=== PATIENT | male | born 1990 ===

== ENCOUNTER 2022-03-25 12:35 | Outpatient (REF) | payer BC, SELFPAY ==
--- NOTE | 2022-03-30 13:15 | MHC.AU.AEV ---
Adult Audiological Evaluation Date of Visit: 03/25/22 Reason for Appointment: Initial testing prior to full central auditory processing evaluation. Felix was reportedly diagnosed with CAP in [address] [facility]. 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 Throughout schooling, Felix reportedly had extra test time and note takers as well as allowed to preview upcoming material for classes; however, he was not formally diagnosed with CAP until 2019. Has hearing been tested previously?: Yes Previous Hearing Test Results: [facility] on 10/16/2018 - Normal peripheral hearing with normal middle ear function, bilaterally. Central auditory processing disorder in phonemic decoding and tolerance fading memory Hearing Handicap Inventory Does a hearing problem cause you to feel embarrassed when meeting new people?: Sometimes Does a hearing problem cause you to feel frustrated when talking to members of your family?: Sometimes Do you have difficulty when someone speaks in a whisper?: Yes Do you feel handicapped by a hearing problem?: Sometimes Does a hearing problem cause you difficulty when visiting friends, relatives, or neighbors?: Sometimes Does a hearing problem cause you to attend gnosticism service services less often than you would like?: No Does a hearing problem cause you to have arguments with family members?: No Does a hearing problem cause you difficulty when listening to TV or radio?: Yes Do you feel that any difficult with your hearing limits or hampers your personal or social life?: Sometimes Does a hearing problem cause you difficulty when in a restaurants with relatives or friends?: Sometimes HHIE SCORE: 20 Based on HHIE score, patient has: Mild to moderate perceived hearing handicap Medical History: Medical History: Anxiety/Depression Medication List: Celexa, Testosterone Otoscopy: Right Ear: Unremarkable Left Ear: Unremarkable Tympanometry: Tympanometry performed due to: To assess integrity of the middle ear system Right Ear: Normal Middle Ear System (Type A) Left Ear: Normal Middle Ear System (Type A) Acoustic Reflexes: Ipsilateral Probe Right: 500 Hz: Present 1000 Hz: Present 2000 Hz: Present 4000 Hz: Present Probe Left: 500 Hz: Present 1000 Hz: Present 2000 Hz: Present 4000 Hz: Absent Contralateral Probe Right: 500 Hz: Present 1000 Hz: Present 2000 Hz: Present 4000 Hz: Absent Probe Left: 500 Hz: Present 1000 Hz: Present 2000 Hz: Absent 4000 Hz: Absent Otoacoustic Emissions Frequency Range Used: 1.5-12 kHz Right Ear: Results: Present 1.5-6 and 11-12 kHz; Reduced 7-10 kHz Analysis: Present emissions suggest normal cochlear function; Reduced/Absent emissions suggest cochlear dysfunction Left Ear: Results: Present 1.5-6 and 11-12 kHz; Reduced 7-10 kHz Analysis: Present emissions suggest normal cochlear function; Reduced/Absent emissions suggest cochlear dysfunction Hearing Evaluation: Transducer(s) Used: Insert Earphones Method: Conventional Stimuli Used: Pure Tones Right Ear: Description of Hearing: Normal hearing 250-8000 Hz and excellent speech discrimination in quiet Left Ear: Description of Hearing: Normal hearing 250-8000 Hz and excellent speech discrimination in quiet Most Comfortable Level (MCL): 55 dB HL in each ear to speech Uncomfortable Loudness Level (UCL): 95 dB HL in each ear to speech Right Ear: 100, 105, 110, 110 dB HL to tones at 500, 1000, 2000, 4000 Hz, respectively Left Ear: 100, 105, 105, 110 dB HL to tones at 500, 1000, 2000, 4000 Hz, respectively QuickSIN: 1 dB SNR loss Interpretation of Results: Compared to the most recent evaluation: Hearing is stable. Normal peripheral hearing and middle ear function, bilaterally. QuickSIN results show normal/near normal degree of SNR loss. Performance on the Auditory Continuous Performance Test indicate normal auditory vigilance with no auditory impulsivity or inattention. Recommendations: Return for Speech, Language, and Cognition evaluation as well as full auditory processing evaluation. Further recommendations will be made at that time. Diagnosis: Primary Diagnosis: H93.293 Abnormal Auditory Perception Signature: Provider: David Gil, [facility]
== END 2022-03-25 12:36 | disposition home or self-care (01) ==
LOC: HO.SH 12:35
PROVIDERS: Visit Provider Family Medicine
DX: H93.293 Other abnormal auditory perceptions, bilateral (principal)
CPT/HCPCS: 92550; 92557; 92587; 92700

== ENCOUNTER 2022-04-22 15:02 | Outpatient (REF) | payer BC, SELFPAY ==
--- NOTE | 2022-04-26 11:26 | MHC.AU.CAP ---
(Central) Auditory Processing Evaluation Date of Visit: 04/22/22 Reason for Evaluation: Felix was referred for a central auditory processing evaluation to reevaluate his needs and appropriate accommodations for academic tasks. He was diagnosed with CAP in October [address] [facility]. 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 Although not formally diagnosed with CAP until 2019, Felix noted that he had learning difficulties throughout his school years. However, he was a successful student with classroom and academic accommodations. Felix reported that now, at work, hearing and communicating in big group meetings is difficult at times. Per Felix, it can be difficult for him to concentrate and focus especially in the presence of background noise or competing sound sources. Previous Evaluations: Central auditory processing evaluation at [facility] on 10/16/2018 - Normal peripheral hearing and normal middle ear function, bilaterally, with central auditory processing disorder in phonemic decoding and tolerance fading memory Speech, Language, and Cognition evaluation at [facility] on 04/05/2022 - Specific area of weakness/disability in the area of short term auditory memory Previous Audiological Evaluation: Diagnostic hearing evaluation at [facility] on 03/25/2022 - Normal peripheral hearing and normal middle ear function, bilaterally / History: History: Unknown History /Delivery History: Unknown /Delivery History /Delivery History (Other): Adopted from [place] at age 3 [place] Hearing Screening: Results Are Unknown Patient History: Health History: History of concussion, anxiety/depression Medications: Celexa, Testosterone Family History of Childhood-Onset Hearing Loss: Unknown Academic History: School: Felix attended private schools including [employer] and [employer] for his primary education. He did not have an individualized education plan in place; however, he reportedly had learning difficulties, specifically in math and reading. Subsequently, he did have accommodations in school including extra time on exams, note takers, and previews of upcoming material. He attended [employer] for his undergraduate degree and [employer] for his master's degree. 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 Auditory Continuous Performance Test (ACPT): is an attention screening that evaluates the ability to listen over a prolonged period of time. Normative data for Felix?s age at the time of testing indicates possible attention difficulties if 16 or more errors are made. This test was performed on 03/25/2022. Results show 0 inattention errors and 0 impulsivity errors for a total of 0 errors on this test, which is within normal limits and suggests Felix is capable of sustained auditory attention. EVALUATION: Frequency Patterns Test is a test of temporal processing skills, specifically frequency discrimination, linguistic labeling, and temporal pattern perception. Three tones are presented to the patient, which change in pitch between low or high. The patient has to verbally label the pitch patterns. Felix?s score was 90% correct when the pattern was labeled verbally. Normative values for this age group are 80% correct or better. The result of the Frequency Patterns test is within normal limits, suggesting normal temporal processing ability. Dichotic Digits Test is a test of binaural integration. During this test, a different pair of numbers is presented simultaneously to each ear, and the patient must repeat all four numbers presented. Felix?s scores were 97.5% correct in the right ear and 95% correct in the left ear. Normative values for this age group are 90% correct or better. The results of the Dichotic Digits test are within normal limits, and suggest normal binaural integration ability. Competing Sentences Test is a test of binaural separation. Different sentences are presented to each ear simultaneously, with the target sentence 15 dBHL softer than the competing sentence. The patient is asked to repeat only what was heard in the target ear. Felix?s scores were 97.5% correct in the right ear and 97.5% correct in the left ear. Normative values for this age group are 90% correct or better. The results of the Competing Sentences test are within normal limits, and suggest normal binaural separation ability. [id number] is a test of auditory closure. The patient is asked to repeat single-syllable words in the presence of babble/noise. Felix?s scores were 56% correct in the right ear and 72% correct in the left ear. Normative values for this age group are 70% or better for each ear. The results of the [id number] test are within normal limits for the left ear and below normal limits for the right ear, suggesting an auditory closure deficit. Masking Level Difference is a test of binaural interaction. The listener repeats words in increasing levels of noise, first with the words out of phase, then with the words in phase, until they can no longer understand the words. The difference in threshold between words presented out of phase and in phase is calculated to measure the listener?s release from masking. Felix?s score revealed a 14 dB threshold release from masking. Normative values for this age group are 6 dB or greater. The result of the Masking Level Difference test is within normal limits, and suggests normal binaural interaction ability. INTERPRETATION OF RESULTS: Felix was able to sustain sufficient attention and effort throughout testing today. It is felt that today's results are a reliable representation of his auditory processing abilities. A (Central) Auditory Processing Disorder is typically diagnosed if the patient falls below normal limits on two or more subtests, or significantly poor performance (more than 3 standard deviations from the mean) on one subtest. -The results of today?s (Central) Auditory Processing evaluation suggest normal (Central) auditory processing ability and are not consistent with a (Central) Auditory Processing Disorder. However, a weakness was noted in auditory closure performance. This weakness combined with the weakness of short term auditory memory, as noted in the Speech, Language, and Cognition evaluation, may cause difficulty recalling briefly presented auditory information especially in the presence of background noise. 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 Auditory closure refers to the ability to fill in missing or distorted portions of the auditory signal and interpret the entire message. Difficulties with auditory closure may result in difficulty filling in the missing components when a portion of the auditory signal is inaudible. Often, the individual has difficulties with auditory discrimination and decoding. Listeners tend to have weak top-down processing, which may be influenced by attention or language-related problems. RECOMMENDATIONS: Individuals with auditory processing weaknesses may have to exert significant energy into listening, and therefore need better access to critical auditory information. Noise, reverberation, and distance can interfere with the ability to receive auditory information. The accommodations and communication strategies below can help provide better access to the auditory signal. Accommodations and Communication Strategies: -Reduce excessive background noise such as heating/cooling systems and fans and ensure that the individual is seated away from these sources of noise -Strategic seating in lectures or at meetings - near the target sound source (e.g., guest speaker, computer) and where the speaker's face is visible -If consistent difficulty is noted in a particular room, consider an acoustic evaluation to provide specific recommendations for environmental modifications -Ensure that you have gained the individual's attention prior to presenting important information -Rephrase or restate, rather than repeating exactly what has been said -Use Clear Speech -Speak clearly and deliberately -Slow down your rate of speech -Take short pauses in between thoughts -Do not yell -Use multimodal strategies including visual aids -Provide written notes or an outline of information that will be presented verbally before class so the individual can concentrate on the material presented and not on the writing of notes -Assign a peer children's zoo caretaker to supplement the individual's own notes -Pre-teach complicated information/topics; Have the individual read ahead prior to starting a new topic Given the normal results on today's assessment, no recommendations for direct services to address auditory processing skills are recommended; however, given FelixCarlosgaston specific areas of weakness, below are examples of compensatory strategies to improve listening comprehension, as well help to determine and retain the content/meaning of a verbal message. -Use of active listening strategies for listening comprehension and to strengthen existing processing skills. These include: Whole-body listening techniques by maintaining an alert position, inclining head toward the speaker, keeping eyes firmly on the speaker, and avoiding activities that can take attention away from the speaker such as excess movement or fidgeting Analyze the listening environments. Identify sources of competing noise that interfere with speech intelligibility and determine how best to change the environment (for example, request to be moved to a quieter place) Indicate misunderstandings and ask for the speaker to rephrase the question or sentence -Use of meta-memory strategies: Chunking- Breaking down long messages or lists into smaller components and grouping similar concepts together Elaboration- Use of analogies and acronyms to improve auditory memory Verbal Rehearsal - repeating the auditory message over and over again Diagnosis Codes: Primary Diagnosis: H93.293 Abnormal Auditory Perception Services Performed: Central Auditory Function Test (CPT 34389) Signature: Provider: David Gil, [facility] Please feel free to contact us with any questions or concerns at .
== END 2022-04-22 15:03 | disposition home or self-care (01) ==
LOC: HO.SH 15:02
PROVIDERS: Visit Provider Family Medicine
DX: H93.293 Other abnormal auditory perceptions, bilateral (principal)
CPT/HCPCS: 92620